=== PATIENT | female | born 1950 | race Caucasian/White ===

== ENCOUNTER 2018-03-30 15:15 | Emergency (ER) | payer OTHER ==
[~2018-03-30] VITALS: Ht 165.1 cm; Wt 90.2 kg
[2018-03-30] MEDS ORDERED: ZANTAC 150MG T150 MG PO (15:25)
[2018-03-30 16:58] VITALS: BP 145/60
== END 2018-03-30 17:00 | disposition home or self-care (01) ==
LOC: M.ERS 15:15
DX: S00.33XA Contusion of nose, initial encounter (principal); M25.511 Pain in right shoulder; M79.672 Pain in left foot; F41.9 Anxiety disorder, unspecified; K21.9 Gastro-esophageal reflux disease without esophagitis; Z88.1 Allergy status to other antibiotic agents; W20.8XXA Other cause of strike by thrown, projected or falling object, initial encounter; Y93.89 Activity, other specified; Y92.89 Other specified places as the place of occurrence of the external cause; Y99.8 Other external cause status

== ENCOUNTER → 2018-08-26 | Outpatient (CLI) | payer OTHER ==
[~2018-08-26] MED LIST: ZANTAC 150MG T150 MG PO
== END ==
LOC: M.CT 07:55
DX: J90 Pleural effusion, not elsewhere classified (principal)

== ENCOUNTER 2020-08-23 09:41 | Inpatient (IN) | payer MEDICARE ==
[~2020-08-23] VITALS: Ht 162.6 cm; Wt 79.4 kg
[~2020-08-23 09:41] MED LIST changes: +CALCIUM 500 +1 EACH PO; +VITAMIN D1000 UNI1 PO
[2020-08-23 10:02] VITALS: BP 181/82
[2020-08-23 10:45] LABS: ABSOLUTE BASOPHILS 0.1 thou/uL (0.0-0.2); ABSOLUTE EOSINOPHILS 0.2 thou/uL (0.0-0.7); ABSOLUTE LYMPHOCYTES 1.6 thou/uL (0.8-5.3); ABSOLUTE MONOCYTES 0.9 thou/uL (0.0-1.2); ABSOLUTE NEUTROPHILS 6.5 thou/uL (1.6-8.1); BASOPHILS 1.5 %; HEMATOCRIT 42.4 % (37.0-47.0); HEMOGLOBIN 14.3 gm/dL (12.0-15.0); LYMPHOCYTES 17.1 %; MCH 28.9 pg (26.0-34.0); MCHC 33.7 g/dL (28.0-37.0); MCV 85.6 fL (80.0-100.0); MONOCYTES 9.9 %; MPV 7.9 fl. (7.2-11.1); NUCLEATED RBCS 0 /100WBC; PLATELET COUNT* 304 thou/uL (150-400); POLYS 69.5 %; RBC 4.95 mil/uL (4.20-5.00); RDW-CV 14.2 % (10.5-14.5); WBC 9.3 thou/uL (4.0-11.0)
[2020-08-23 10:49] LABS: CALCIUM 8.5 mg/dL (8.5-10.1); CREATININE 0.8 mg/dL (0.6-1.3); POTASSIUM 3.3 mmol/L (3.5-5.1)
[2020-08-23 10:53] LABS: ALBUMIN 3.3 g/dL (3.4-5.0); TOTAL BILIRUBIN 1.5 mg/dL (<0.1-1.0); TOTAL PROTEIN 8.3 g/dL (6.4-8.2)
[2020-08-23 11:30] LABS: URINE BLOOD NEGATIVE (Negative); URINE CLARITY SL CLOUDY; URINE COLOR YELLOW; URINE GLUCOSE-RANDOM NEGATIVE (Negative); URINE KETONES NEGATIVE (Negative); URINE LEUKOCYTES-REFLEX 1+ (Negative); URINE NITRITE-REFLEX NEGATIVE (Negative); URINE PROTEIN TRACE (Negative); URINE SPECIFIC GRAVITY 1.025 (1.005-1.030); URINE UROBILINOGEN 0.2 E.U./dl (0.2-1.0)
[2020-08-23 11:39] LABS: URINE BILIRUBIN 1+ (Negative)
[2020-08-23 11:43] LABS: BACTERIA-REFLEX 1-9 Few /HPF (None Seen); HYALINE CASTS >10 Many /LPF (None Seen); MUCUS >6 Heavy strn/LPF (None Seen); SQUAMOUS 4-10 Moderate /LPF (0-3); URINE RBC 0-2 Rare /HPF (0-2); URINE WBC-REFLEX 0-5 Rare /HPF (0-5)
[2020-08-23 11:45] LABS: CRYSTALS None Seen /LPF (None Seen)
[2020-08-23 15:15] VITALS: BP 158/81
--- NOTE | 2020-08-23 15:40 | NUR ---
PATIENT ARRIVED TO UNIT FROM ER AT 1530. ALERT AND ORIENTED X 4. VITAL SIGNS STABLE ON ROOM AIR. AMBULATED FROM ER CART TO BED. ORIENTED PATIENT TO ROOM. CALL LIGHT WITHIN REACH. NURSING WILL CONTINUE TO MONITOR.
--- NOTE | 2020-08-23 18:10 | EKG ---
[place] [address] ELECTROCARDIOGRAM REPORT Name: OLI HANCOCK Negrita Room: [address] ADM IN M.R.#: [id number] Admission: 08/23/20 Attend Phys: Real Patterson, Discharge: Date of : 46 Date of Service: 08/23/20 1034 Report #: [id number] THIS REPORT FOR: //name// [facility] ED Test Date: 2020-08-23 Test Time: 10:34:21 Pat Name: OLI HANCOCK Department: Room: [facility] Gender: F [employer]: : [id number] Requested By: Khanh Ponce Order Number: [id number] MD: Miguel De La Torre Measurements Intervals Iron Rate: 74 P: -24 ID: [id number] QRS: -18 QRSD: 88 T: 24 QT: 402 QTc: 446 Interpretive Statements Sinus rhythm Left ventricular hypertrophy, by voltage Compared to ECG 12/26/2018 09:08:56 Left ventricular hypertrophy now present Electronically Signed On 08-23-2020 18:10:02 [employer] by Miguel De La Torre [email or web address] <ELECTRONICALLY SIGNED> By: Miguel De La Torre MD, FACC 08/23/20 1810 1034 1034 Miguel De La Torre MD, FAC /EPI
--- NOTE | 2020-08-23 18:33 | NUR ---
PATIENT ALERT AND ORIENTED X 4. VITAL SIGNS STABLE ON ROOM AIR. UP INDEPENDENTLY IN ROOM. IV PATENT WITH FLUIDS INFUSING. DENIES PAIN AND NAUSEA AT THIS TIME. FALL PRECAUTIONS IN PLACE AND BED ALARM ON. HOULYR ROUNDS MAINTAINED THROUGHOUT THE SHIFT. CALL LIGHT WITHIN REACH. NURSING WILL CONTINUE TO MONITOR.
[2020-08-23 19:54] VITALS: BP 146/66
[2020-08-24 03:06] LABS: HEPATITIS B SURFACE AG Negative (Negative)
--- NOTE | 2020-08-24 04:53 | NUR ---
PT A&O THROUGHOUT SHIFT, VSS ON ROOM AIR, IV FLUIDS INFUSING ORDERED, PT UP AD RUSSELL, PT NPO SINCE MIDNIGHT, PT SLEEPING WELL, WILL CONTINUE TO MONITOR.
[2020-08-24 06:31] LABS: ABSOLUTE BASOPHILS 0.1 thou/uL (0.0-0.2); ABSOLUTE EOSINOPHILS 0.3 thou/uL (0.0-0.7); ABSOLUTE LYMPHOCYTES 1.5 thou/uL (0.8-5.3); ABSOLUTE MONOCYTES 0.8 thou/uL (0.0-1.2); ABSOLUTE NEUTROPHILS 4.4 thou/uL (1.6-8.1); BASOPHILS 1.2 %; EOSINOPHILS 4.8 %; HEMATOCRIT 38.2 % (37.0-47.0); HEMOGLOBIN 12.7 gm/dL (12.0-15.0); LYMPHOCYTES 20.7 %; MCH 28.7 pg (26.0-34.0); MCHC 33.3 g/dL (28.0-37.0); MCV 86.3 fL (80.0-100.0); MONOCYTES 11.5 %; MPV 7.4 fl. (7.2-11.1); NUCLEATED RBCS 0 /100WBC; PLATELET COUNT* 242 thou/uL (150-400); POLYS 61.8 %; RBC 4.42 mil/uL (4.20-5.00); WBC 7.2 thou/uL (4.0-11.0)
[2020-08-24 06:45] LABS: ALBUMIN 2.6 g/dL (3.4-5.0); CALCIUM 7.7 mg/dL (8.5-10.1); CREATININE 0.8 mg/dL (0.6-1.3); POTASSIUM 3.4 mmol/L (3.5-5.1); TOTAL BILIRUBIN 1.4 mg/dL (<0.1-1.0); TOTAL PROTEIN 6.6 g/dL (6.4-8.2)
[2020-08-24 07:20] LABS: PROTIME 10.6 Seconds (9.20-11.50)
[2020-08-24 08:21] VITALS: BP 144/72
[2020-08-24 15:00] VITALS: BP 195/87
[2020-08-24 16:02] VITALS: BP 156/74
--- NOTE | 2020-08-24 16:41 | NUR ---
PT CALLED OUT WITH DIZZINESS BELIEVING THAT SHE WAS HAVING A HYPOGLYCEMIC EPISODE. BLOOD GLUCOSE CHECKED AT 83. PT REPORTS THAT IS LOW FOR HER. JUICE AND FOOD GIVEN. BLOOD GLUCOSE RECHECKED AT 150. PT REPORTS THAT SHE FEELS BETTER NOW. DR FOX MADE AWARE. NO PREVIOUS KNOWLEDGE THAT PT IS DIABETIC OR HYPOGLYCEMIC KNOWN TO STAFF PRIOR TO THIS EPISODE.
--- NOTE | 2020-08-24 18:31 | NUR ---
PT REPORTS TINGLING TO R FACE AND R ARM. NO SLURRED SPEECH. ABLE TO LIFT BOTH UPPER AND LOWER EXTREMITIED EQUALLY. DR RAMÍREZ NOTIFIED BY YOU CALL.
[2020-08-24 20:10] VITALS: BP 113/52
[2020-08-25] VITALS: BP 111/61
[2020-08-25 00:10] VITALS: BP 111/61
--- NOTE | 2020-08-25 03:59 | NUR ---
PATIENT HAS REMAINED ALERT AND ORIENTED X 4 THROUGHOUT THE SHIFT AND RESTING QUIETLY ON HOURLY ROUNDS. Q4H VITAL SIGNS WITH NEURO CHECKS WITHIN NORMAL LIMITS. AT MIDNIGHT CHECK PATIENT STATES THE TINGLING SENSATION OF FACE HAS COMPLETELY RESOLVED. CT WAS NEGATIVE FOR ANY ACUTE ABNORMALITY. FALL PRECAUTIONS IN PLACE. HAS DENIED PAIN OR NAUSEA. CONTINUE TO MONITOR.
[2020-08-25 04:13] LABS: ABSOLUTE BASOPHILS 0.1 thou/uL (0.0-0.2); ABSOLUTE EOSINOPHILS 0.3 thou/uL (0.0-0.7); ABSOLUTE LYMPHOCYTES 1.7 thou/uL (0.8-5.3); ABSOLUTE MONOCYTES 0.8 thou/uL (0.0-1.2); ABSOLUTE NEUTROPHILS 3.7 thou/uL (1.6-8.1); BASOPHILS 1.1 %; EOSINOPHILS 4.2 %; HEMATOCRIT 35.8 % (37.0-47.0); HEMOGLOBIN 11.7 gm/dL (12.0-15.0); LYMPHOCYTES 26.5 %; MCH 28.3 pg (26.0-34.0); MCHC 32.8 g/dL (28.0-37.0); MCV 86.3 fL (80.0-100.0); MONOCYTES 11.8 %; MPV 7.7 fl. (7.2-11.1); NUCLEATED RBCS 0 /100WBC; PLATELET COUNT* 230 thou/uL (150-400); POLYS 56.4 %; RBC 4.15 mil/uL (4.20-5.00); RDW-CV 14.2 % (10.5-14.5); WBC 6.6 thou/uL (4.0-11.0)
[2020-08-25 04:17] VITALS: BP 136/61
[2020-08-25 04:32] LABS: ALBUMIN 2.4 g/dL (3.4-5.0); CALCIUM 7.7 mg/dL (8.5-10.1); CREATININE 0.8 mg/dL (0.6-1.3); POTASSIUM 3.5 mmol/L (3.5-5.1); TOTAL BILIRUBIN 0.9 mg/dL (<0.1-1.0); TOTAL PROTEIN 6.1 g/dL (6.4-8.2)
[2020-08-25 04:38] LABS: PREALBUMIN 12.3 mg/dL (18.0-35.7)
[2020-08-25 07:30] VITALS: BP 153/66
[2020-08-25 11:56] VITALS: BP 153/66
[2020-08-25 12:46] VITALS: BP 153/66
--- NOTE | 2020-08-25 12:59 | NUR ---
PT GIVEN DISCHARGE INFORMATION. IV REMOVED. PT BELONGINGS GATHERED. PT LEFT VIA WHEELCHAIR WITH NURSING STAFF TO HOME. FALL RISK PRECAUTIONS IN PLACE. ACCUCHECKS COMPLETED. HOURLY ROUNDING COMPLETED.
[2020-08-25 19:06] LABS: C-PEPTIDE 5.8 ng/mL (1.1-4.4); INSULIN 16.4 uIU/mL (2.6-24.9)
== END 2020-08-25 13:38 | disposition home or self-care (01) | DRG 441 ==
LOC: M.ERS 09:41 → M.TBA-ER 12:48 → M.3W 12:48
PROVIDERS: Emergency Medicine Emergency Medical Services; Internal Medicine Gastroenterology; ADMIT Internal Medicine; ATTEND Internal Medicine
PROC: 0DJ08ZZ Inspection of Upper Intestinal Tract, Via Natural or Artificial Opening Endoscopic (ICD-10-PCS; principal; 2020-08-24)
PROC: 0FC98ZZ Extirpation of Matter from Common Bile Duct, Via Natural or Artificial Opening Endoscopic (ICD-10-PCS; principal; 2020-08-24)
DX: B17.9 Acute viral hepatitis, unspecified (principal); K85.90 Acute pancreatitis without necrosis or infection, unspecified; K80.30 Calculus of bile duct with cholangitis, unspecified, without obstruction; F41.9 Anxiety disorder, unspecified; I16.0 Hypertensive urgency; K44.9 Diaphragmatic hernia without obstruction or gangrene; K21.9 Gastro-esophageal reflux disease without esophagitis; E80.6 Other disorders of bilirubin metabolism; Z20.828 Contact with and (suspected) exposure to other viral communicable diseases; Z79.899 Other long term (current) drug therapy; Z88.8 Allergy status to other drugs, medicaments and biological substances